=== PATIENT | male | born 1960 | race Caucasian/White ===

== ENCOUNTER → 2019-03-26 06:00 | Outpatient (CLI) | payer OTHER ==
[~2019-03-26] VITALS: Ht 180.3 cm; Wt 85.7 kg
[~2019-03-26 06:00] MED LIST: CLONAZEPAM0.5 M1 PO; TRAZODONE HCL50 MG PO
== END | disposition home or self-care (01) ==
LOC: LAB 06:00 → EDSTATUS 03-31 07:00 → SURH 03-31 07:00
DX: Z01.810 Encounter for preprocedural cardiovascular examination (principal); Z01.811 Encounter for preprocedural respiratory examination; Z01.812 Encounter for preprocedural laboratory examination; C61 Malignant neoplasm of prostate

== ENCOUNTER → 2019-03-31 | Emergency (ER) | payer OTHER ==
[~2019-03-31] VITALS: Ht 180.3 cm; Wt 85.7 kg
== END | disposition home or self-care (01) ==
LOC: ER 17:05
DX: G51.0 Bell's palsy (principal)

== ENCOUNTER 2019-09-18 08:00 | Inpatient (IN) | payer OTHER ==
[~2019-09-18] VITALS: Ht 177.8 cm; Wt 79.4 kg
[2019-09-18] MEDS ORDERED: EFFESOR PO (09:37)
[2019-09-18] MEDS ORDERED: EFFEXOR XR75 MG (09:57)
== END 2019-09-24 10:13 | disposition home or self-care (01) | DRG 708 ==
LOC: ADM 08:00 → O/R 09-22 04:30 → SURH 09-22 04:30 → CIR.AMB 09-22 08:00 → SURH 09-22 08:00 → EDSTATUS 09-22 08:00 → SURH 09-22 13:13
PROVIDERS: ADMIT Urology
PROC: 07BC0ZX Excision of Pelvis Lymphatic, Open Approach, Diagnostic (ICD-10-PCS; 2019-09-22)
PROC: 0VT00ZZ Resection of Prostate, Open Approach (ICD-10-PCS; principal; 2019-09-22 07:00)
DX: C61 Malignant neoplasm of prostate (principal); R97.21 Rising PSA following treatment for malignant neoplasm of prostate; F32.89 Other specified depressive episodes